=== PATIENT | female | born 1965 | race Caucasian/White ===

== ENCOUNTER 2017-04-17 10:48 | Emergency (ER) | payer SELFPAY ==
[~2017-04-17] VITALS: Ht 162.6 cm; Wt 63.6 kg
[2017-04-17 10:49] VITALS: TEMP 98.1
[2017-04-17 11:26] LABS: HEMATOCRIT 41.3 % (37.0-47.0); HEMOGLOBIN 14.2 g/dl (12.5-16.0); MEAN CELL VOLUME 90 fl (80.0-100.0); MEAN CORPUSCULAR HEMOGLOBIN 31 pg (27.0-31.0); MEAN CORPUSCULAR HGB CONC 34 g/dl (33.0-37.0); MEAN PLATELET VOLUME 9.7 fl (7.4-10.4); PLATELET COUNT 201 K/mm3 (130-400); RED BLOOD COUNT 4.59 M/mm3 (4.10-5.30); REDCELL DISTRIBUTION WIDTH-CV 12.7 % (11.5-14.5)
[2017-04-17 11:28] LABS: ADD PATHOLOGY DIFF REVIEW NO
[2017-04-17 11:33] LABS: PROTHROMBIN TIME 11.4 SECONDS (9.7-12.8)
[2017-04-17 11:36] LABS: PARTIAL THROMBOPLASTIN TIME 32.2 SECONDS (26.0-37.0)
[2017-04-17 11:37] LABS: ADJUSTED CALCIUM 8.4 mg/dL (8.4-10.2); ALANINE AMINOTRANSFERASE 20 U/L (9-52); ALBUMIN 3.9 gm/dL (3.5-5.0); ALKALINE PHOSPHATASE 136 U/L (50-136); ANION GAP 11 mmol/L (7-16); BILIRUBIN,TOTAL 0.7 mg/dL (0.0-1.0); BLOOD UREA NITROGEN 8 mg/dL (7-17); CALCIUM 8.3 mg/dL (8.4-10.2); CARBON DIOXIDE 27 mmol/L (22-30); CHLORIDE 100 mmol/L (98-107); CREATININE, serum 0.52 mg/dL (0.52-1.25); GLUCOSE 156 mg/dL (74-106); POTASSIUM 3.4 mmol/L (3.4-5.0); SODIUM 138 mmol/L (137-145)
[2017-04-17 11:48] LABS: B-TYPE NATRIURETIC PEPTIDE 25 pg/mL (0-125)
[2017-04-17 11:49] LABS: TROPONIN-I < 0.012 ng/mL (0.000-0.034)
[2017-04-17 11:54] LABS: BAND 6 % (0-10); BASOPHIL 2 % (0-2); EOSINOPHIL 9 % (0-4); MYELOCYTE 1 % (0-0); NEUTROPHILS 27 % (42.0-75.2); TOTAL CELLS COUNTED 100
[2017-04-17 11:55] LABS: PLATELET ESTIMATE NORMAL (NORMAL)
[2017-04-17] MEDS ORDERED: LEVAQUIN 5500 MG/TA1 PO (12:06)
[2017-04-17] MEDS ORDERED: PREDNISONE20 MG PO (12:06)
[2017-04-17 12:20] VITALS: BP 134/70; PULSE 79
== END 2017-04-17 12:22 | disposition home or self-care (01) ==
LOC: COL.ER 10:48
PROVIDERS: Emergency Medicine
DX: J20.9 Acute bronchitis, unspecified (principal); J18.1 Lobar pneumonia, unspecified organism; I25.10 Atherosclerotic heart disease of native coronary artery without angina pectoris; F17.210 Nicotine dependence, cigarettes, uncomplicated
CPT/HCPCS: J7512

== ENCOUNTER → 2017-11-02 | Outpatient (CLI) | payer SELFPAY ==
[~2017-11-02] MED LIST: LEVAQUIN 5500 MG/TA1 PO; PREDNISONE20 MG PO
== END ==
LOC: SUN.DIA 07:59
DX: E11.9 Type 2 diabetes mellitus without complications (principal); E66.9 Obesity, unspecified; Z68.31 Body mass index [BMI] 31.0-31.9, adult; Z71.3 Dietary counseling and surveillance; Z87.891 Personal history of nicotine dependence
CPT/HCPCS: G0108